=== PATIENT | female | born 1955 | race Caucasian/White ===

== ENCOUNTER 2017-03-04 20:26 | Emergency (ER) | payer MEDICAID, OTHER ==
[~2017-03-04] VITALS: Ht 165.1 cm; Wt 81.6 kg
[~2017-03-04 20:26] MED LIST: AMLO5TAB2 PO; HYDR25TA4 PO; LOSA50TA21 PO
[2017-03-04 21:45] LABS: *BILIRUBIN,URIN NEGATIVE (NEGATIVE); *BLOOD, URINE Trace-intact (NEGATIVE); *CLARITY,URINE SLIGHTLY CLOUDY (CLEAR); *COLOR,URINE YELLOW (YELLOW); *KETONES,URINE NEGATIVE (NEGATIVE); *PROTEIN,URINE NEGATIVE (NEGATIVE); *UROBILINOGEN,URINE 0.2 E.U./dl (NORMAL); LEUKOCYTE ESTERASE ,URINE NEGATIVE (NEGATIVE); NITRITE, URINE NEGATIVE (NEGATIVE); UGLUCOSE NEGATIVE (NEGATIVE)
[2017-03-04 21:59] LABS: RBC,URINE 0-3 /HPF (0-3); SQUAMOUS EPITHELIAL CELL,UR FEW /HPF (NONE SEEN); URINE AMORPHOUS PHOSPHATES MANY /HPF; WBC,URINE 0-3 /HPF (0-3)
[2017-03-04 22:00] LABS: BASOPHILS # (AUTO) 0.1 K/uL (0.0-8.0); BASOPHILS % (AUTO) 0.9 % (0.0-2.0); EOSINOPHILS # (AUTO) 0.1 K/uL (0.0-0.7); EOSINOPHILS % (AUTO) 1.2 % (0.0-7.0); HEMATOCRIT 43.4 % (37-47); HEMOGLOBIN 14.5 G/DL (12.0-16.0); LYMPHOCYTES # (AUTO) 2.1 K/UL (0.8-4.8); LYMPHOCYTES % (AUTO) 25.5 % (20.5-51.5); MEAN CORPUSCULAR HEMOGLOBIN 27.3 UUG (27.0-31.0); MEAN CORPUSCULAR HGB CONC 33 g/dL (32.0-37.0); MEAN CORPUSCULAR VOLUME 81.7 FL (81.0-99.0); MONOCYTES # (AUTO) 0.5 K/UL (0.1-1.30); MONOCYTES % (AUTO) 6.3 % (0.0-11.0); NEUTROPHILS # (AUTO) 5.3 K/UL (1.8-8.9); NEUTROPHILS % (AUTO) 66.1 % (38.5-71.5); PLATELET COUNT (AUTO) 262 K/UL (150-450); RED BLOOD CELL COUNT(AUTO) 5.32 MIL/UL (4.2-5.4); WHITE BLOOD COUNT (AUTO) 8.1 K/UL (4.0-11.2)
[2017-03-04 22:02] LABS: CREATININE 0.7 mg/dL (0.6-1.3); POTASSIUM 3.7 mmol/L (3.5-5.1)
[2017-03-04 22:09] LABS: BILIRUBIN,DIRECT 0.1 mg/dL (0.0-0.2); BILIRUBIN,TOTAL 0.3 mg/dL (0.2-1.0); TOTAL PROTEIN, SERUM 7.7 g/dL (6.4-8.2)
--- NOTE | 2017-03-04 23:52 | NUR ---
Patient discharged to home in stable conditon. Written and verbal after care instructions given. Patient verbalizes understanding of instructions.
== END 2017-03-05 00:06 | disposition home or self-care (01) ==
LOC: ER 20:32
DX: K52.9 Noninfective gastroenteritis and colitis, unspecified (principal); K21.9 Gastro-esophageal reflux disease without esophagitis; I10 Essential (primary) hypertension; M19.90 Unspecified osteoarthritis, unspecified site; Z88.0 Allergy status to penicillin
CPT/HCPCS: 36415; 70030-TC; 71010; 83690; 85025; 85730; A4663

== ENCOUNTER 2017-06-28 21:37 | Emergency (ER) | payer MEDICAID ==
[~2017-06-28] VITALS: Ht 154.9 cm; Wt 63.5 kg
--- NOTE | 2017-06-28 23:21 | NUR ---
Patient discharged to home in stable conditon. Written and verbal after care instructions given. Patient verbalizes understanding of instructions. Ambulated from ER with stable gait. All belongings with patient.
[2017-06-28 23:22] VITALS: BP 137/81
== END 2017-06-28 23:23 | disposition home or self-care (01) ==
LOC: ER 21:40
DX: H60.92 Unspecified otitis externa, left ear (principal); I10 Essential (primary) hypertension; K21.9 Gastro-esophageal reflux disease without esophagitis; M19.90 Unspecified osteoarthritis, unspecified site; Z88.0 Allergy status to penicillin; F17.200 Nicotine dependence, unspecified, uncomplicated
CPT/HCPCS: A4663

== ENCOUNTER 2018-06-05 15:36 | Emergency (ER) | payer MEDICAID ==
[~2018-06-05] VITALS: Ht 154.9 cm; Wt 61.2 kg
[~2018-06-05 15:36] MED LIST changes: -AMLO5TAB2 PO; +AMLO5TAB9 PO; -LOSA50TA21 PO; +LOSA50TA39 PO
[2018-06-05] MEDS ORDERED: TOLT2CAP PO (15:51)
[2018-06-05] MEDS ORDERED: ESCI10TA PO (15:51)
--- NOTE | 2018-06-05 16:00 | NUR ---
PT A/OX4, PRESENTS TO THE ER C/O HEADACHE X 2 DAYS. PT STATES THE PAIN HAS BEEN SPREADING DOWN TO BILATERAL SHOULDERS AND LEFT CHEST. NO FACIAL DROOP, NO HEMILATERAL WEAKNESS. BILATERAL PERRLA. VSS. PT DENIES SOB, N/V/D.
--- NOTE | 2018-06-05 16:06 | NUR ---
ROSALIE MCCABE AT BEDSIDE FOR MSE.
[2018-06-05] MEDS: IV NORMAL SALINE 1000 ML BAG IV ONE (16:27)
[2018-06-05 16:30] LABS: BASOPHILS # (AUTO) 0.1 K/uL (0.0-8.0); BASOPHILS % (AUTO) 0.8 % (0.0-2.0); EOSINOPHILS # (AUTO) 0.1 K/uL (0.0-0.7); HEMATOCRIT 40.6 % (31.2-41.9); HEMOGLOBIN 14.1 g/dL (10.9-14.3); LYMPHOCYTES # (AUTO) 2.1 K/uL (20.0-40.0); LYMPHOCYTES % (AUTO) 28.3 % (20.5-51.5); MEAN CORPUSCULAR HEMOGLOBIN 28.9 uug (24.7-32.8); MEAN CORPUSCULAR HGB CONC 35 g/dL (32.3-35.6); MEAN CORPUSCULAR VOLUME 83.2 fL (75.5-95.3); MONOCYTES # (AUTO) 0.5 K/uL (2.0-10.0); MONOCYTES % (AUTO) 6.5 % (0.0-11.0); NEUTROPHILS # (AUTO) 4.6 K/uL (1.8-8.9); NEUTROPHILS % (AUTO) 63.4 % (38.5-71.5); PLATELET COUNT (AUTO) 234 K/uL (179-408); RED BLOOD CELL COUNT(AUTO) 4.88 MIL/uL (3.63-4.92); WHITE BLOOD COUNT (AUTO) 7.3 K/uL (3.8-11.8)
--- NOTE | 2018-06-05 16:33 | NUR ---
CASH ROOM CLERK AT BEDSIDE.
[2018-06-05 16:39] LABS: CREATININE 0.6 mg/dL (0.6-1.3); POTASSIUM 3.8 mmol/L (3.5-5.1)
[2018-06-05 16:45] LABS: BILIRUBIN,DIRECT 0.1 mg/dL (0.0-0.2); BILIRUBIN,TOTAL 0.3 mg/dL (0.2-1.0); TOTAL PROTEIN, SERUM 7.5 g/dL (6.4-8.2)
--- NOTE | 2018-06-05 17:27 | NUR ---
PT TAKEN TO RADIOLOGY FOR CT SCAN.
[2018-06-05] MEDS ORDERED: SWABABLE VALVE TRANSFER SET EA MC ONE (17:31)
[2018-06-05] MEDS ORDERED: NORMAL SALINE FLUSH 10 ML DISP.SYRIN ONE (17:31)
[2018-06-05] MEDS ORDERED: IOHEXOL 350 100 ML INFUS..BTL ONE (17:32)
[2018-06-05] MEDS ORDERED: IV NORMAL SALINE 250 ML IV ONE (17:32)
--- NOTE | 2018-06-05 17:52 | NUR ---
PT BACK IN ER FROM RADIOLOGY.
--- NOTE | 2018-06-05 18:18 | NUR ---
ROSALIE MCCABE AT BEDSIDE FOR PT UPDATE.
--- NOTE | 2018-06-05 18:36 | NUR ---
Patient discharged to home in stable conditon. Written and verbal after care instructions given. Patient verbalizes understanding of instructions. ALL BELONGINGS W/ PT. PT SELF-AMBULATED W/O DIFFICULTY. 20G IV ACCESS IN L AC REMOVED PRIOR TO D/C - INNER CANNULA INTACT.
[2018-06-05 18:37] VITALS: BP 150/77
== END 2018-06-05 18:37 | disposition home or self-care (01) ==
LOC: ER 15:40
DX: I11.9 Hypertensive heart disease without heart failure (principal); H93.13 Tinnitus, bilateral; K21.9 Gastro-esophageal reflux disease without esophagitis; F17.200 Nicotine dependence, unspecified, uncomplicated; Z88.0 Allergy status to penicillin; Z79.899 Other long term (current) drug therapy
CPT/HCPCS: 36415; 70496; 70498; 71045; 80048; 80061; 80076; 84484; 85025; 85730; 93005; 99284; Q9967; 70030-TC; A4663; J3490; J7030; J7050

== ENCOUNTER 2019-06-15 14:22 | Emergency (ER) | payer MEDICAID ==
[~2019-06-15] VITALS: Ht 157.5 cm; Wt 82.1 kg
[~2019-06-15 14:22] MED LIST changes: +ESCI10TA PO; +TOLT2CAP PO
--- NOTE | 2019-06-15 14:35 | NUR ---
PATIENT BROUGHT INTO ROOM. WAITING TO BE SEEN BY PHYSICIAN
--- NOTE | 2019-06-15 14:41 | NUR ---
PATIENT SEEN BY DOCTOR ANSARI. ORDERS BEING PLACED
[2019-06-15] MEDS ORDERED: IV NORMAL SALINE 1000 ML BAG IV ONE (14:45)
[2019-06-15 14:55] LABS: *BILIRUBIN,URIN NEGATIVE (NEGATIVE); *BLOOD, URINE NEGATIVE (NEGATIVE); *CLARITY,URINE CLEAR (CLEAR); *COLOR,URINE YELLOW (YELLOW); *KETONES,URINE NEGATIVE (NEGATIVE); *UROBILINOGEN,URINE 0.2 E.U./dl (NORMAL); LEUKOCYTE ESTERASE ,URINE NEGATIVE (NEGATIVE); NITRITE, URINE NEGATIVE (NEGATIVE); PH,URINE 7.5 (5.0-8.0); UGLUCOSE NEGATIVE (NEGATIVE)
[2019-06-15 14:58] LABS: BASOPHILS % (AUTO) 0.9 % (0.0-2.0); EOSINOPHILS # (AUTO) 0.1 K/uL (0.0-0.7); EOSINOPHILS % (AUTO) 2.3 % (0.0-7.0); HEMOGLOBIN 11.9 g/dL (10.9-14.3); LYMPHOCYTES # (AUTO) 1.6 K/uL (20.0-40.0); LYMPHOCYTES % (AUTO) 28.6 % (20.5-51.5); MEAN CORPUSCULAR HEMOGLOBIN 26.5 uug (24.7-32.8); MEAN CORPUSCULAR HGB CONC 32 g/dL (32.3-35.6); MEAN CORPUSCULAR VOLUME 82.4 fL (75.5-95.3); MONOCYTES # (AUTO) 0.3 K/uL (2.0-10.0); MONOCYTES % (AUTO) 6.1 % (0.0-11.0); NEUTROPHILS # (AUTO) 3.4 K/uL (1.8-8.9); NEUTROPHILS % (AUTO) 62.1 % (38.5-71.5); PLATELET COUNT (AUTO) 271 K/uL (179-408); RED BLOOD CELL COUNT(AUTO) 4.49 MIL/uL (3.63-4.92); WHITE BLOOD COUNT (AUTO) 5.5 K/uL (3.8-11.8)
[2019-06-15 15:10] LABS: BILIRUBIN,DIRECT 0.1 mg/dL (0.0-0.2); BILIRUBIN,TOTAL 0.2 mg/dL (0.2-1.0); CREATININE 0.7 mg/dL (0.6-1.3); TOTAL PROTEIN, SERUM 7.3 g/dL (6.4-8.2)
--- NOTE | 2019-06-15 15:27 | NUR ---
PENDING ALL TEST RESULTS
--- NOTE | 2019-06-15 15:50 | NUR ---
DOCTOR ANSARI EXPLAINED RESULTS. DISCHARGE INSTRUCTIONS GIVEN AND PRESCRIPTIONS GIVEN. DC IV
[2019-06-15] MEDS ORDERED: KETOROLAC TROMETHAMINE 30 MG INJ ONE (15:55)
[2019-06-15] MEDS ORDERED: KETOROLAC TROMETHAMINE 30 MG INJ IM ONE (16:00)
== END 2019-06-15 16:06 | disposition home or self-care (01) ==
LOC: ER 14:22
DX: D25.9 Leiomyoma of uterus, unspecified (principal); I10 Essential (primary) hypertension; K21.9 Gastro-esophageal reflux disease without esophagitis; F17.200 Nicotine dependence, unspecified, uncomplicated; Z88.0 Allergy status to penicillin; Z79.899 Other long term (current) drug therapy
CPT/HCPCS: 36415; 74176; 80048; 80076; 81001; 83690; 85025; 85730; 87086; 96372; 99284; J1885; A4663; J7030

== ENCOUNTER 2020-08-24 13:53 | Emergency (ER) | payer MEDICAID ==
[~2020-08-24] VITALS: Ht 157.5 cm; Wt 82.6 kg
[~2020-08-24 13:53] MED LIST changes: +AMLO-212 PO; -AMLO5TAB9 PO; -ESCI10TA PO; -TOLT2CAP PO
[2020-08-24] MEDS ORDERED: METF-494 PO ×2 (14:21)
[2020-08-24] MEDS ORDERED: INSULIN REGULAR, HUMAN 300 UNIT/3 ML VIAL SQ ONE ×2 (14:30→15:15)
[2020-08-24] MEDS ORDERED: INSULIN REGULAR, HUMAN 300 UNIT/3 ML VIAL ONE (14:31)
--- NOTE | 2020-08-24 14:32 | NUR ---
Ela was high. Patient states she has never been diagnosed with diabetes. Insulin given as ordered in right arm SQ. Addendum: 08/24/20 at 1603 by SARMAD *ERNESTO*
--- NOTE | 2020-08-24 16:03 | NUR ---
SECOND INSULIN DOSE GIVEN IN LEFT ARM SQ. BG CHECKED 35 MINUTES, WAS 449. DR ANSARI AWARE. PATIENT WAS TOLD TO FOLLOW UP WITH HER PMD DOM FOR DIABETES DIAGNOSIS. DC, RX AND FOLLOW UP INSTRUCTIONS GIVEN AND EXPLAINED TO PATIENT WHO STATES SHE UNDERSTANDS ALL INSTRUCTIONS
== END 2020-08-24 16:04 | disposition home or self-care (01) ==
LOC: ER 13:53
DX: E11.65 Type 2 diabetes mellitus with hyperglycemia (principal); I10 Essential (primary) hypertension; K21.9 Gastro-esophageal reflux disease without esophagitis; Z88.0 Allergy status to penicillin; Z79.899 Other long term (current) drug therapy
CPT/HCPCS: 82962 ×3; 96372 ×2; 99284; J1815 ×2; A4663

== ENCOUNTER 2023-09-15 15:27 | Emergency (ER) | payer MEDICAID, OTHER ==
[~2023-09-15] VITALS: Ht 157.5 cm; Wt 82.6 kg
[~2023-09-15 15:27] MED LIST changes: +METF-494 PO
[2023-09-15 15:30] VITALS: O2SAT 97
[2023-09-15 16:12] LABS: BASOPHILS # (AUTO) 0.2 K/UL (0.0-0.2); BASOPHILS % (AUTO) 3.8 % (0.0-2.0); EOSINOPHILS # (AUTO) 0.1 K/uL (0.0-0.7); EOSINOPHILS % (AUTO) 1.7 % (0.0-7.0); HEMATOCRIT 39.9 % (31.2-41.9); HEMOGLOBIN 13.3 g/dL (10.9-14.3); LYMPHOCYTES # (AUTO) 1.4 K/uL (0.8-4.8); LYMPHOCYTES % (AUTO) 24.3 % (20.5-51.5); MEAN CORPUSCULAR HEMOGLOBIN 26.6 uug (24.7-32.8); MEAN CORPUSCULAR HGB CONC 33 g/dL (32.3-35.6); MEAN CORPUSCULAR VOLUME 80.3 fL (75.5-95.3); MONOCYTES # (AUTO) 0.4 K/uL (0.1-1.30); MONOCYTES % (AUTO) 6.4 % (0.0-11.0); NEUTROPHILS # (AUTO) 3.8 K/uL (1.8-8.9); NEUTROPHILS % (AUTO) 63.8 % (38.5-71.5); PLATELET COUNT (AUTO) 278 K/uL (179-408); RED BLOOD CELL COUNT(AUTO) 4.97 MIL/uL (3.63-4.92); RED CELL DISTRIBUTION WIDTH 14.5 % (12.3-17.7); WHITE BLOOD COUNT (AUTO) 5.9 K/uL (3.8-11.8)
[2023-09-15 16:23] LABS: ALANINE AMINOTRANSFERASE 31 U/L (14-59); ALBUMIN 3.5 g/dL (3.4-5.0); ALKALINE PHOSPHATASE 122 U/L (50-136); ASPARTATE AMINOTRANSFERASE 6 U/L (15-37); BILIRUBIN,TOTAL 0.4 mg/dL (0.2-1.0); CALCIUM 9.5 mg/dL (8.5-10.1); CARBON DIOXIDE 30 mmol/L (21-32); CHLORIDE 105 mmol/L (98-107); CREATININE 0.7 mg/dL (0.6-1.3); GLUCOSE 147 mg/dL (74-106); POTASSIUM 4.2 mmol/L (3.5-5.1); SODIUM SERUM 144 mmol/L (136-145); TOTAL PROTEIN, SERUM 7.3 g/dL (6.4-8.2); UREA NITROGEN, BLOOD 9 mg/dL (7-18)
[2023-09-15 16:27] LABS: BILIRUBIN,DIRECT < 0.1 mg/dL (0.0-0.2)
[2023-09-15 16:28] LABS: DIFFERENTIAL COMMENT 1
[2023-09-15 17:11] LABS: MAGNESIUM 1.8 mg/dL (1.8-2.4)
[2023-09-15] MEDS ORDERED: OXYCODONE/APAP 5-325 MG TABLET ONE (17:13)
[2023-09-15] MEDS: OXYCODONE/APAP 5-325 MG TABLET PO ONE (17:14)
[2023-09-15] MEDS: MAGNESIUM SULFATE/D5W 100 ML IV SCH (17:45)
[2023-09-15] MEDS ORDERED: SYRI-29 MC (18:11)
[2023-09-15] MEDS ORDERED: MECO10006 IM (18:11)
[2023-09-15] MEDS ORDERED: CYANOCOBALAMIN 1000 MCG/ML VIAL ONE (18:24)
[2023-09-15] MEDS: CYANOCOBALAMIN 1000 MCG/ML VIAL IM ONE (18:32)
== END 2023-09-15 18:35 | disposition home or self-care (01) ==
LOC: ER 15:28
DX: R42 Dizziness and giddiness (principal); R51.9 Headache, unspecified; E53.8 Deficiency of other specified B group vitamins; M79.2 Neuralgia and neuritis, unspecified; E83.42 Hypomagnesemia; K21.9 Gastro-esophageal reflux disease without esophagitis; E11.9 Type 2 diabetes mellitus without complications; F17.200 Nicotine dependence, unspecified, uncomplicated; Z79.899 Other long term (current) drug therapy; Z88.0 Allergy status to penicillin
CPT/HCPCS: 99283; 80076; 80048; 82607; 83735; 85025; 36415; 96372; J3420; A4606; A4663

== ENCOUNTER 2024-04-30 10:28 | Emergency (ER) | payer OTHER ==
[~2024-04-30] VITALS: Ht 157.5 cm; Wt 81.6 kg
[~2024-04-30 10:28] MED LIST changes: +MECO10006 IM; +SYRI-29 MC
[2024-04-30 12:02] LABS: BASOPHILS # (AUTO) 0.1 K/UL (0.0-0.2); BASOPHILS % (AUTO) 0.9 % (0.0-2.0); EOSINOPHILS # (AUTO) 0.1 K/uL (0.0-0.7); EOSINOPHILS % (AUTO) 1.8 % (0.0-7.0); HEMATOCRIT 43.4 % (31.2-41.9); HEMOGLOBIN 13.8 g/dL (10.9-14.3); LYMPHOCYTES # (AUTO) 1.6 K/uL (0.8-4.8); LYMPHOCYTES % (AUTO) 27.8 % (20.5-51.5); MEAN CORPUSCULAR HGB CONC 32 g/dL (32.3-35.6); MEAN CORPUSCULAR VOLUME 81.5 fL (75.5-95.3); MONOCYTES # (AUTO) 0.4 K/uL (0.1-1.30); MONOCYTES % (AUTO) 7.5 % (0.0-11.0); NEUTROPHILS # (AUTO) 3.6 K/uL (1.8-8.9); PLATELET COUNT (AUTO) 265 K/uL (179-408); RED BLOOD CELL COUNT(AUTO) 5.33 MIL/uL (3.63-4.92); RED CELL DISTRIBUTION WIDTH 14.9 % (12.3-17.7); WHITE BLOOD COUNT (AUTO) 5.9 K/uL (3.8-11.8)
[2024-04-30 12:08] LABS: DIFFERENTIAL COMMENT 1
[2024-04-30 12:14] LABS: CALCIUM 9.7 mg/dL (8.5-10.1); CREATININE 0.5 mg/dL (0.6-1.3); POTASSIUM 3.6 mmol/L (3.5-5.1); URIC ACID 3.8 mg/dL (2.6-6.0)
[2024-04-30 13:08] LABS: ERYTHROCYTE SEDIMENTATION RATE 31 MM/HR (0-20)
[2024-04-30] MEDS ORDERED: ACET1TAB23 PO (13:36)
[2024-04-30 13:46] VITALS: BP 124/79; TEMP 98.6; O2SAT 97
== END 2024-04-30 13:47 | disposition home or self-care (01) ==
LOC: ER 10:28
DX: M65.972 Unspecified synovitis and tenosynovitis, left ankle and foot (principal); M65.971 Unspecified synovitis and tenosynovitis, right ankle and foot; R22.43 Localized swelling, mass and lump, lower limb, bilateral; E11.9 Type 2 diabetes mellitus without complications; F17.200 Nicotine dependence, unspecified, uncomplicated; K21.9 Gastro-esophageal reflux disease without esophagitis; M19.90 Unspecified osteoarthritis, unspecified site; Z79.84 Long term (current) use of oral hypoglycemic drugs; Z79.899 Other long term (current) drug therapy; Z88.0 Allergy status to penicillin
CPT/HCPCS: 36415; 84550; 85025; 85651; A4606; A4663